=== PATIENT | female | born 1940 | race Caucasian/White ===

== ENCOUNTER → 2016-12-25 | Outpatient (CLI) | payer MEDICARE, BC, OTHER ==
[~2016-12-25] MED LIST: CALCIUM-MAG-ZI1 EACH PO; MULTIVITAMINS1 EAC2 PO
== END | disposition disaster alternative care site (69) ==
LOC: GRAD 09:48
DX: R10.30 Lower abdominal pain, unspecified (principal); D72.829 Elevated white blood cell count, unspecified; K57.30 Diverticulosis of large intestine without perforation or abscess without bleeding; K57.92 Diverticulitis of intestine, part unspecified, without perforation or abscess without bleeding; K44.9 Diaphragmatic hernia without obstruction or gangrene
CPT/HCPCS: Q9967